=== PATIENT | female | born 1980 | race African-American/Black ===

== ENCOUNTER → 2017-08-10 | Outpatient (CLI) | payer BC ==
[~2017-08-10] VITALS: Ht 180.3 cm; Wt 148.3 kg
[~2017-08-10] MED LIST: ALEVE220 MG PO; AMITRIPTYLINE H10 M3 PO; ASPERCREME1 EACH TOP; HYDROCODONE-AP1 EAC6 PO; LEXAPRO20 MG PO; MEDROL DOSPAK21 TA1 PO; MEDROLDOSEPACK PO; MOBIC15 MG PO; TRAMADOL 50 MG50 MG PO
--- NOTE | ~2017-08-10 | HPC ---
[facility] [place] [address] PAIN MANAGEMENT CONSULTATION Name: JAVON MÁRQUEZ Room #: REG [facility] M.Kristin.#: [id number] Admission: 08/10/17 Attend Phys: Rajesh Sadler MD Discharge: Date of : 78 Report #: [id number] THIS REPORT FOR: //name// CC: Rajesh Carbajal DATE OF SERVICE: 08/10/2017 FOLLOWUP COMPLAINT: "The pain has improved since the last injection, but I did have an episode where I felt like pain was going down my sciatic nerve." FOLLOWUP HISTORY: The patient is a 36-year-old female who has been followed in the pain clinic. As you may recall, she suffered from pain and discomfort in her chest. Findings were consistent with costochondritis. She was given a Medrol Dosepak and a script for meloxicam. Overall, she feels that things have improved. She has had no complications from the procedure or the medications. She feels that she has been much more active with less discomfort. She did have an episode, where she noted some pain and discomfort shooting around down in the posterior portion of her leg, which was consistent with sciatic pain which she has felt before. At this juncture, it is not very problematic. She rates her pain as a 2/10. She feels that her medications have been helpful. PHYSICAL EXAMINATION: Blood pressure 144/67, pulse 93, respiratory rate 18, room air saturation 99%. Height 5 feet 11 inches, weight 327 pounds, BMI is 45. The patient has some soreness in the upper sternal area to palpation, but overall, this is much better than when she was initially seen. She has had an episode of pain, which radiated down into the right posterior portion in the L5-S1 nerve root distribution. Overall, she feels that things are going reasonably well. She has had no problems with the medication. She has not had any problems with the Elavil medication. 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 IMPRESSION: 1. Costochondritis of left and right areas have improved with a Medrol Dosepak. 2. Phalen's test with signs consistent with carpal tunnel syndrome, stable today. 3. Left ankle pain appears to have improved as well on her current medical regimen. 4. History of sciatic nerve pain, had an episode, but not problematic at this juncture. RECOMMENDATIONS: We will continue with the patient's current medication of an additional Medrol Dosepak at this juncture, amitriptyline 10 mg [address] p[address] [address] PAIN MANAGEMENT CONSULTATION Name: JAVON MÁRQUEZ MEDHAT Room #: REG [facility] Parada#: [id number] Admission: 08/10/17 Attend Phys: Rajesh Sadler MD Discharge: Date of : 78 Report #: [id number] bedtime, meloxicam 15 mg 1 p.o. daily. She will call us if she has any problems with her medications. <ELECTRONICALLY SIGNED> By: Rajesh Sadler MD 10/31/17 1121 1554 0050 Rajesh Sadler MD /nt
[2017-08-10 11:10] VITALS: BP 144/67
== END ==
LOC: PAIN 07:44
DX: M94.0 Chondrocostal junction syndrome [Tietze] (principal); M25.572 Pain in left ankle and joints of left foot

== ENCOUNTER → 2017-10-03 | Outpatient (CLI) | payer BC ==
[~2017-10-03] VITALS: Ht 180.3 cm; Wt 147.4 kg
--- NOTE | ~2017-10-03 | HPC ---
[facility] [address] [address] PAIN MANAGEMENT CONSULTATION Name: JAVON MÁRQUEZ Room #: REG [facility] Melissa.#: [id number] Admission: 10/03/17 Attend Phys: Rajesh Sadler MD Discharge: Date of : 78 Report #: [id number] THIS REPORT FOR: //name// CC: Rajesh Carbajal DATE OF SERVICE: 10/10/2017 FOLLOWUP COMPLAINT: The pain has improved. FOLLOWUP HISTORY: The patient is a 36-year-old female who has been seen in the pain clinic, she is a business investor for the public. As you recall, she has had some pain and discomfort in her chest area. She was treated with a Medrol Dosepak. She found that this pain improved as a result of the Medrol Dosepak. She has less pain and discomfort. She is still having some discomfort in the lower back and has had some pain, which radiated down into her legs. This was consistent with sciatica. She returns today and rates her pain as an 8 involving her ankle and wrist. She noted that the pain in her chest area has improved. Does have pain and discomfort in her hands as well as the right knee. Continues with some discomfort in the wrist and feels that her medication of meloxicam has been helpful. She has had no problems with the amitriptyline. She felt that this medication did improve the pain and discomfort. She is having no problems with somnolence or confusion as a result of the use of amitriptyline. She feels that her renewal of these medications would be beneficial and would like to have another script for Medrol Dosepak, amitriptyline and meloxicam. ALLERGIES: No known drug allergies. REVIEW OF MEDICATIONS: Hydrocodone 5/325 one p.o. b.i.d., Mobic 15 mg 1 p.o. daily, Aspercreme topical p.r.n., Ultram 50 mg every 4-6 hours p.r.n. pain, Lexapro 20 mg, Elavil 10 mg at night. PAST MEDICAL HISTORY: 1. Emotional problems -- son in January of a seizure. 2. Joint disease/arthritis. PAIN CLINIC ASSESSMENT: 1. The patient was showing some arthritic changes in her sternum, hands, ankles and elbows. 2. Height 5 feet 11 inches, weight 325 pounds, BMI is 45. 3. VITAL SIGNS: Blood pressure 135/71, pulse 96, respiratory rate 16, room air saturation 97%. 4. Pain intensity rated as an 8 secondary to ankle pain. It is worsened with changes in the weather. [facility] [address] [place] [address] PAIN MANAGEMENT CONSULTATION Name: JAVON MÁRQUEZ Room #: REG [facility] Parada#: [id number] Admission: 10/03/17 Attend Phys: Rajesh Sadler MD Discharge: Date of : 78 Report #: [id number] 5. Fall risk. The patient has not fallen. She has not fallen in the last 3 months. 6. The patient is not on a blood thinner. 7. The patient is not being treated for hypertension. 8. Opioid contract. The patient is not on an opioid contract with our pain clinic. 9. Risk assessment tool. 10. Functional assessment tool. 11. Recreational drug use. The patient denies use of recreational drugs, tobacco use. The patient has never smoked cigarettes. 12. Alcohol. The patient does not drink alcoholic beverages. PHYSICAL EXAMINATION: GENERAL: The patient is a well-developed, obese female. Appears her stated age. Orientation, she is alert and oriented x 3. Affect, the patient's affect appears appropriate. HEENT: The patient is normocephalic, atraumatic. Ears unremarkable. Normal hearing. EYES: Extraocular muscles intact. Nonicteric sclerae. No nasal complaints. Moist buccal membranes. NECK: Without adenopathy or masses. LUNGS: Clear to auscultation. HEART: Regular rate. ABDOMEN: Protuberant. MUSCULOSKELETAL: Appears to have normal alignment without significant kyphosis, scoliosis or lordosis. Walks with complaint of pain involving the ankles bilaterally, left ankle, most problematic. Major muscle groups in the lower extremity, judged to be 5/5. The patient is having less chest discomfort in the sternal area, particularly on the left and right parasternal areas. IMPRESSION: 1. Costochondritis, left and right areas improved with the Medrol Dosepak. 2. Phalen's test positive consistent with carpal tunnel syndrome, stable at this juncture. 3. Left ankle pain continues to improve, but is more problematic today with a change in weather. 4. History of sciatic nerve problems, not problematic today. RECOMMENDATIONS: We discussed treatment options with the patient. At this juncture, we will continue with a conservative approach. Another Medrol Dosepak will be issued. The patient finds that this medication has been quite helpful. We will also renew her amitriptyline. The patient states that she is not having any problems with this medication. There is no confusion, no problems with mentation. The patient will continue with meloxicam. She is not having any GI complaints. She will stop this medication if she notes any concerns. She will [address] [address] PAIN MANAGEMENT CONSULTATION Name: JAVON MÁRQUEZ Room #: REG [facility].#: [id number] Admission: 10/03/17 Attend Phys: Rajesh Sadler MD Discharge: Date of : 78 Report #: [id number] call us if she has any problems. We would like to thank you for letting us participate in her care. We hope she continues to improve. <ELECTRONICALLY SIGNED> By: Rajesh Sadler MD 10/31/17 1426 [id number] Rajesh Sadler MD /PMT
[2017-10-03 09:29] VITALS: BP 135/71
== END ==
LOC: PAIN 06:40
DX: M94.0 Chondrocostal junction syndrome [Tietze] (principal); M25.572 Pain in left ankle and joints of left foot; G56.00 Carpal tunnel syndrome, unspecified upper limb

== ENCOUNTER → 2017-10-31 | Outpatient (CLI) | payer BC ==
[~2017-10-31] VITALS: Ht 180.3 cm; Wt 148.3 kg
--- NOTE | ~2017-10-31 | HPC ---
[facility] [address] [place] [address] PAIN MANAGEMENT CONSULTATION Name: JAVON MÁRQUEZ Room #: REG [facility] Melissa.#: [id number] Admission: 10/31/17 Attend Phys: Rajesh Sadler MD Discharge: Date of : 78 Report #: [id number] THIS REPORT FOR: //name// CC: Rajesh Carbajal DATE OF SERVICE: 10/31/2017 FOLLOWUP COMPLAINT: I would like to get another one dose of Medrol Dosepak. It has been very helpful. I am having less pain in the chest. FOLLOWUP HISTORY: The patient is a very pleasant 36-year-old female who has been seen in the pain clinic because of chronic pain. As you recall, she has some pain and discomfort in the chest area. It seems that she has had problems as a result of costochondritis. She finds that medication has been helpful. She does have some pain in number of joints. She is experiencing pain in her elbow, hips, ankles down in her feet. Notes that sometimes when she gets up and walks if there is pain and discomfort in her feet. After a few steps, pain improves somewhat. She also has had some pain in her wrist. Overall, use of the Medrol Dosepak has been quite remarkable. She notes that her pain has been significantly improved after use of that medication. Denies any problems with the amitriptyline. Feels if that medication too is helpful. She would like to receive another Medrol Dosepak. She still has a script for amitriptyline and Meloxicam. ALLERGIES: No known drug allergies. CURRENT MEDICATIONS: Include hydrocodone 5/325 one p.o. b.i.d., Mobic 15 mg 1 p.o. daily, Aspercreme topical p.r.n., Ultram 50 mg every 4-6 hours p.r.n. pain, Lexapro 20 mg, Elavil 10 mg at night. PAIN CLINIC ASSESSMENT: 1. History of osteoarthritis/rheumatoid arthritis. 2. The patient has signs and complains of pain similar to rheumatoid arthritis, which include her hands, ankles as well as some improvement in the sternal pain. 3. Height 5 feet 11 inches, weight 327 pounds, BMI is 45. 4. Vital signs: Blood pressure 123/77, pulse 104, respiratory rate 16, room air saturation 96%. 5. Pain intensity 10/10. 6. Fall risk. The patient has not fallen. 7. Blood thinners. The patient is not on a blood thinner. 8. History of hypertension. The patient is not on any antihypertensive medications. 9. Opioid therapy. The patient is not on a chronic opioid therapy. 10. [place] [address] PAIN MANAGEMENT CONSULTATION Name: JAVON MÁRQUEZ Room #: REG [facility].#: [id number] Admission: 10/31/17 Attend Phys: Rajesh Sadler MD Discharge: Date of : 78 Report #: [id number] 11. Functional assessment tool. 12. Recreational drugs. The patient never used drugs. 13. Tobacco. The patient has never smoked tobacco. Alcohol. The patient denies any use of alcoholic beverages. PHYSICAL EXAMINATION: GENERAL: The patient is a well-developed black female. She is somewhat obese. Appearance: Appears the appropriate age. Orientation: The patient is alert and oriented x 3. Affect: The patient's affect is appropriate. HEENT: Normocephalic, atraumatic. Extraocular eye muscles intact. Hearing within normal limits. No significant nasal complaints. Moist buccal membranes. NECK: Without adenopathy or masses. HEART: Regular rate. ABDOMEN: Protuberant. EXTREMITIES: Upper extremity musculature is symmetrical. Muscle strength is judged to be 5/5 for the major muscle groups of the upper extremity. Palpation in the area of the costochondral areas indicates that the costochondritis has improves. MUSCULOSKELETAL: Alignment: The patient appears to have normal alignment of her back without significant scoliosis, kyphosis or lordosis. Lower extremity muscle strength is judged to be 5/5. NEUROLOGICAL: The patient is intact in the lower extremities. She does have some pain and discomfort in the right elbow, knees bilaterally down into her feet. IMPRESSION: 1. Joint soreness, which changes with the weather and is not inconsistent with rheumatoid arthritis or osteoarthritis. 2. Emotional problems. Son in 01/2017 from a seizure. 3. Joint disease/arthritis. 4. Obesity. RECOMMENDATIONS: We discussed treatment options with the patient. Risks and benefits of steroids were discussed. We explain the limitation of steroids. We explained how they are quite helpful for a limited time. There can be complications as result of their chronic use. We will write for an additional Medrol Dosepak at this juncture. The patient has had some pain in the past, which sounded consistent with plantar fasciitis involving her feet. Has some pain and discomfort in her knees and ankles as well as in her elbow. These have waxed and waned with the weather. She will continue with her Mobic medication. She will continue with the amitriptyline. She can increase this and take 2 tablets per day. She will monitor her sensorium. 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 We would like to thank you for letting us participate in her care. We hope she continues to improve. <ELECTRONICALLY SIGNED> By: Rajesh Sadler MD 11/16/17 0823 1730 0158 Rajesh Sadler MD /PMT
[2017-10-31 11:23] VITALS: BP 123/77
== END ==
LOC: PAIN 07:08
DX: M19.90 Unspecified osteoarthritis, unspecified site (principal); E66.9 Obesity, unspecified; F93.8 Other childhood emotional disorders; Z68.42 Body mass index [BMI] 45.0-49.9, adult